=== PATIENT | male | born 1950 | race Caucasian/White ===

== ENCOUNTER 2017-11-09 07:33 | Day surgery (SDC) | payer MEDICARE, OTHER ==
[~2017-11-09 07:33] MED LIST: LIDOCAINE 2% INJ 100 MG/5 ML SDV (FOR ANES.) As Ordered; PROPOFOL 200 MG/20 ML VIAL As Ordered
[2017-11-09] MEDS: NS 1,000 ML IV (07:45)
[2017-11-09] MEDS ORDERED: PROPOFOL 200 MG/20 ML VIAL As Ordered (10:06)
== END 2017-11-09 10:54 | disposition home or self-care (01) ==
LOC: M OPP 07:33
DX: Z12.11 Encounter for screening for malignant neoplasm of colon (principal); Z86.010 Personal history of colon polyps; K57.30 Diverticulosis of large intestine without perforation or abscess without bleeding; R00.8 Other abnormalities of heart beat; K25.9 Gastric ulcer, unspecified as acute or chronic, without hemorrhage or perforation; Z87.19 Personal history of other diseases of the digestive system; Z86.69 Personal history of other diseases of the nervous system and sense organs; K21.9 Gastro-esophageal reflux disease without esophagitis; K59.00 Constipation, unspecified; M19.90 Unspecified osteoarthritis, unspecified site; F41.9 Anxiety disorder, unspecified; L98.8 Other specified disorders of the skin and subcutaneous tissue; R51 Headache; G25.81 Restless legs syndrome; G47.30 Sleep apnea, unspecified; R06.83 Snoring; N40.1 Benign prostatic hyperplasia with lower urinary tract symptoms; Z96.643 Presence of artificial hip joint, bilateral; Z88.8 Allergy status to other drugs, medicaments and biological substances; Z79.82 Long term (current) use of aspirin; Z79.899 Other long term (current) drug therapy; Z87.891 Personal history of nicotine dependence; Z80.9 Family history of malignant neoplasm, unspecified
CPT/HCPCS: G0105

== ENCOUNTER → 2018-11-08 | Outpatient (REF) | payer MEDICARE, OTHER ==
[~2018-11-08] MED LIST changes: +ACET500C OR; +AMBI10TA OR; +AMIT25TA2 OR; +AMOX500C OR; +ASPI81TA52; +ASPI81TA83 OR; +CETI10TA; +CLAR500T OR; +COLA100C2 OR; +COUM1TAB18 OR; +ESZO1TAB4; +FISH1000; +FISH300C2 OR; +FLEXERIL PO; +FLOM0.4C39; +FLUTISP; +GLUC500T3 OR; -LIDOCAINE 2% INJ 100 MG/5 ML SDV (FOR ANES.) As Ordered; +LORA-243; +LUNE3TAB36; +LUTE20CA PO; +MELOX; +MULTIVIT PO; +NEUR100C OR; +NORT10CA2; +PERC5TAB8 OR; +PERC7.5T8 OR; -PROPOFOL 200 MG/20 ML VIAL As Ordered; +PROT1TAB2 OR; +REFR0.5D8 OU; +SIMV40TA2 OR; +SUCR1TAB56 OR; +TRAM50TA2 OR; +TYLENOL #3 OR; +VITA100067 PO; +VITA400C OR; +VITA500T OR; +VITAMIN PO; +meloxicam PO
[2018-11-08 15:48] LABS: BASO # 0.1 10^3/uL (0.0-0.2); EOS # 0.2 10^3/uL (0.0-0.50); EOS % 3.8 % (0.0-3.0); HEMATOCRIT 46.4 % (42.0-52.0); HEMOGLOBIN 15.8 g/dl (13.5-17.5); LYMPH # 1.7 10^3/uL (1.5-4.5); LYMPH % 28.4 % (24.0-44.0); MEAN CORPUSCULAR HEMOGLOBIN 30.9 pg (27.0-33.0); MEAN CORPUSCULAR HGB CONC 34.1 g/dl (32.0-36.5); MEAN CORPUSCULAR VOLUME 90.6 fl (80.0-96.0); MONO % 16.5 % (0.0-5.0); NEUTROPHILS # 3.1 10^3/uL (1.8-7.7); NEUTROPHILS % 50.1 % (36.0-66.0); PLATELET COUNT, AUTOMATED 296 10^3/uL (150-450); RED BLOOD COUNT 5.12 10^6/uL (4.30-6.10); WHITE BLOOD COUNT 6.1 10^3/uL (4.0-10.0)
[2018-11-08 17:36] LABS: ERYTHROCYTE SEDIMENTATION RATE 11 mm/hr (0-20)
== END ==
LOC: M LABDRAW1 12:06
PROVIDERS: ATTEND Physician Assistant
DX: M70.22 Olecranon bursitis, left elbow (principal); Z79.899 Other long term (current) drug therapy

== ENCOUNTER 2018-11-22 12:43 | Day surgery (SDC) | payer MEDICARE, OTHER ==
[~2018-11-22] VITALS: Ht 180.3 cm; Wt 94.3 kg
[~2018-11-22 12:43] MED LIST changes: +ACET300T47 PO; +ASPI1TAB PO; +AZEL0.1S; -CETI10TA; +CETI10TA PO; +CYCL10TA PO; -FISH1000; +FISH1000 PO; +LIDO1PAD TOP; +LIDOCAINE 1% MDV 20ML VIAL SQ PRN; +LR 1,000 ML IV ONE; +MELA3TAB PO; +MULTTAB4 PO; -NORT10CA2; +NORT10CA2 PO; +PANT40TA3 PO; +SIMV40TA2 PO; +VITA-122 PO; +VITA-157 PO; +VITA500T9 PO; +[UNRECOGNIZED DRUG - CODE] PO
[2018-11-22] MEDS ORDERED: fentaNYL 250 MCG/5 ML INJECTION (J3010) As Ordered ONE (14:31)
[2018-11-22] MEDS ORDERED: dexameTHASONE 4 MG/ML 1ML VIAL (J1100) As Ordered ONE (14:31)
[2018-11-22] MEDS ORDERED: MIDAZOLAM INJ 2 MG/2 ML VIAL (J2250) As Ordered ONE (14:31)
[2018-11-22] MEDS ORDERED: LIDOCAINE 2% INJ 100 MG/5 ML SDV (FOR ANES.) As Ordered ONE (14:31)
[2018-11-22] MEDS ORDERED: PROPOFOL 200 MG/20 ML VIAL As Ordered ONE (14:31)
[2018-11-22] MEDS ORDERED: ROCURONIUM BROMIDE 50 MG/5 ML VIAL As Ordered ONE (14:31)
[2018-11-22] MEDS ORDERED: ONDANSETRON 4MG/2ML VIAL (J2405) As Ordered ONE (15:28)
[2018-11-22] MEDS ORDERED: ACETAMINOPHEN 1000MG 100ML IV BTL (OFIRMEV) (J0131 PER 10MG) As Ordered ONE (15:28)
[2018-11-22] MEDS ORDERED: BUPIVACAINE HCL 0.5% 30 ML VIAL As Ordered ONE (16:37)
[2018-11-22] MEDS ORDERED: SUGAMMADEX SODIUM 500 MG/5 ML VIAL (BRIDION) As Ordered ONE (16:59)
[2018-11-22] MEDS ORDERED: oxyCODONE 5MG TAB As Ordered ONE (17:39)
[2018-11-22] MEDS ORDERED: HYDROMORPHONE HCL 0.5 MG/ 0.5 ML SYRINGE (J1170 PER 1) As Ordered ONE (17:39)
[2018-11-22] MEDS ORDERED: LR 1,000 ML IV SCH ×2 (17:45)
[2018-11-22] MEDS ORDERED: oxyCODONE 5MG TAB PO PRN (17:45)
[2018-11-22] MEDS ORDERED: fentaNYL 100 MCG/2 ML INJECTION (J3010) IV PRN (17:45)
[2018-11-22] MEDS: HYDROMORPHONE HCL 0.5 MG/ 0.5 ML SYRINGE (J1170 PER 1) IV PRN ×3 (17:45→18:28)
[2018-11-22 20:15] VITALS: BP 126/71
--- NOTE | 2018-11-22 20:33 | RO ---
DATE OF PROCEDURE: 11/22/2018 PREOPERATIVE DIAGNOSIS: Left distal triceps tendon rupture. POSTOPERATIVE DIAGNOSIS: Left distal triceps tendon rupture. PROCEDURE: Left distal triceps tendon repair. SURGEON: Dr. Ceasar Kiran PRESS TENDER: JESS Pantoja ANESTHESIA: General. IV FLUIDS: Lactated Ringer's. ESTIMATED BLOOD LOSS: 5 mL IMPLANTS: 4.75 mm Peak SwiveLock anchor times one. Closure with nylon. DESCRIPTION OF PROCEDURE: Patient identified in preoperative holding area. The left arm marked by myself. He was brought to the operating room, placed supine on a well-padded OR table with a beanbag. After induction of general anesthesia, he received appropriate IV antibiotics. He was then placed into the right side down lateral decubitus position with an axillary roll and all bony prominences were well padded. Bilateral Venodyne boots for DVT prophylaxis. The left arm was draped over an arm cota. The entire left upper extremity from the hand to the 10:10 drapes was then sterilely prepped with Chloraprep. This was draped in the normal sterile fashion. Prior to incision, a time-out was performed per hospital protocol. Jose Luis Alexandre was present for the entire procedure and participated in all essential portions of the procedure. This included patient positioning and draping, holding retractors, assisting with the whip stitching of the tendon, tensioning sutures, passing sutures and assisting with anchor placement and wound closure. This case would not have been possible without a skilled either attending physician or a PA as the tendon injury was already a month old. The left upper extremity was exsanguinated with an Esmarch bandage and a sterile tourniquet was applied and inflated to 250 mmHg. A curvilinear incision was made with a #15 blade over the distal humerus curving laterally around the olecranon. Subcutaneous dissection with Metzenbaum scissors. A seroma was encountered and drained. Bursal tissue was released laterally. The distal triceps tendon was then visualized having retracted greater than 4 cm. There was a large bony fragment larger than appeared on the x-ray. Allis clamp was placed. With significant distal traction I was able to reduce it with the arm in full extension. The bony fragment was sharply excised with a fresh #15 blade. First a FiberWire was placed then a running locking whip stitch crack out fashion along the lateral portion of the tendon. Next these steps were repeated medially with great care to protect the ulnar nerve. This led to four separate strands of FiberWire. I should mention that the sutures entered the tendon about 2 cm proximal to the tip of the tendon. The olecranon was then prepared. A #15 blade and rongeur were used to remove soft tissue off of the olecranon to create a bony bleeding surface. I then created two drill holes with a 2-mm drill bit from the far proximal extent of the olecranon at the deep insertion, then exiting out the subcutaneous border of the ulna distally. One was medial and one was lateral. I then placed FiberLink sutures medially and laterally through the tendon. Next, the lateral sutures were retrieved through the lateral drill hole using a XAware suture passer and the medial sutures retrieved with the XAware suture passer through the medial drill hole. FiberLinks were then used to shuttle one medial and one lateral FiberWire out each drill hole to create a box and X configuration. The incision was extensively irrigated. The arm was then brought into full extension and the sutures were toggled which docked the tendon along the posterior aspect olecranon at the anatomic footprint. I was able to get some of the tendon to advance up over the lip of the olecranon. The elbow was flexed to 40 degrees without lift off. Next, I used a 4.5 mm drill bit to create a unicortical socket in the central aspect of the ulna just distal to those bone tunnels. This was angled distally to avoid the joint. I used the appropriate tap and then re-irrigated. The FiberWire sutures were loaded in a crossing fashion through the SwiveLock anchor and the sutures were retoggled to create as much compression as possible at the anatomic footprint and then the anchor was malleted and inserted by hand with excellent fixation. Excess suture trimmed and discarded. Elbow was again flexed to 40 degrees without any lift off. The elbow was re-irrigated. Lateral aspect of the triceps tear was reinforced with #2 FiberWire in [id number] fashion. Deep closure with #2-0 Vicryl followed by #2-0 subcuticular closure and a running #3-0 nylon. I injected 20 mL of 0.5% Marcaine without epinephrine at the end of the case. I should have mentioned that I did let the tourniquet down prior to placing the SwiveLock anchor to gain as much distal excursion on the triceps tendon. At the time wound closure, there was excellent hemostasis. The patient was placed into a sterile dressing and then placed into a well-padded long arm splint with primarily a large posterior piece and then a smaller anterior strut to reinforce the elbow and this placed the elbow in about 20 degrees of flexion. 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 Sensation to light touch median, radial, ulnar nerves was intact. The hand was warm and well-perfused. COMPLICATIONS: None. DISPOSITION: The patient will remain in his splint until followup visit in 2 weeks. Will transition him to a hinged elbow brace and will get right into physical therapy.
== END 2018-11-22 13:45 | disposition home or self-care (01) ==
LOC: M SDC 12:43
PROVIDERS: ATTEND Orthopaedic Surgery
DX: S46.312A Strain of muscle, fascia and tendon of triceps, left arm, initial encounter (principal); K21.9 Gastro-esophageal reflux disease without esophagitis; G47.30 Sleep apnea, unspecified; F41.9 Anxiety disorder, unspecified; Z88.8 Allergy status to other drugs, medicaments and biological substances; Z79.82 Long term (current) use of aspirin; N40.0 Benign prostatic hyperplasia without lower urinary tract symptoms; Z79.899 Other long term (current) drug therapy; Y92.9 Unspecified place or not applicable; Y93.9 Activity, unspecified
CPT/HCPCS: 24341; C1713; J0131; J1100; J1170; J2250; J2405; J3010

== ENCOUNTER → 2019-02-13 | Outpatient (REF) | payer MEDICARE, OTHER ==
[~2019-02-13] MED LIST changes: +ASPI-523 PO; -ASPI1TAB PO; -LIDOCAINE 1% MDV 20ML VIAL SQ PRN; -LR 1,000 ML IV ONE; -MELA3TAB PO; +MELA3TAB63 PO; +[UNRECOGNIZED DRUG - CODE] PO; -[UNRECOGNIZED DRUG - CODE] PO
[2019-02-13 20:14] LABS: C REACTIVE PROTEIN QUANTITATIV 0.49 MG/DL (0.00-0.30); RHEUMATOID FACTOR QUANT < 10.0 IU/ML (<15.0)
== END ==
LOC: M LABDRAW1 19:33
PROVIDERS: ATTEND Physician Assistant
DX: M54.5 Low back pain (principal)

== ENCOUNTER → 2020-09-29 | Outpatient (CLI) | payer SELFPAY ==
[~2020-09-29] MED LIST changes: +CYCL-707 PO; -CYCL10TA PO; +GLUC500C55 PO; -MELA3TAB63 PO; +MELA3TAB70 PO; +MULT1TAB74 PO; -MULTTAB4 PO; +PANT40TA29 PO; -PANT40TA3 PO; -SIMV40TA2 PO; +SIMV40TA20 PO; -VITA-157 PO; +VITAE40CA PO; -[UNRECOGNIZED DRUG - CODE] PO
== END ==
LOC: M LABSMTC 09:33
PROVIDERS: ATTEND Pediatrics
DX: Z11.52 Encounter for screening for COVID-19 (principal)

== ENCOUNTER → 2022-02-17 | Outpatient (CLI) | payer OTHER ==
[~2022-02-17] MED LIST changes: -GLUC500C55 PO; +GLUC500C65 PO
== END ==
LOC: M RAD 06:50
PROVIDERS: ATTEND Internal Medicine
DX: R10.9 Unspecified abdominal pain (principal); E11.9 Type 2 diabetes mellitus without complications

== ENCOUNTER → 2022-06-14 | Outpatient (REF) | payer OTHER ==
[2022-06-14 19:37] LABS: APPEARANCE, URINE MANUAL CLEAR (CLEAR); COLOR, URINE MANUAL YELLOW (YELLOW); PH,URINE MAN 5.5 UNITS (5.0 - 7.0); SPECIFIC GRAVITY,URINE MANUAL 1.015 (1.002-1.035)
[2022-06-14 19:38] LABS: BILIRUBIN, URINE MANUAL NEGATIVE (NEGATIVE); BLOOD URINE MANUAL TRACE (NEGATIVE); GLUCOSE, URINE (UA) MANUAL NEGATIVE (NEGATIVE); KETONE, URINE MANUAL NEGATIVE (NEGATIVE); LEUKOCYTE ESTERASE, URINE MAN POSITIVE (NEGATIVE); NITRITE, URINE MANUAL NEGATIVE (NEGATIVE); PROTEIN, URINE MANUAL NEGATIVE (NEGATIVE); UROBILINOGEN, URINE MANUAL NORMAL (NORMAL)
[2022-06-14 20:17] LABS: WBC, URINE TNTC /hpf (0-3)
[2022-06-14 20:18] LABS: BACTERIA, URINE MOD AMOUNT; SQUAMOUS EPITHELIAL CELL URINE MOD AMOUNT /hpf (SMALL AMT)
[2022-06-14 20:20] LABS: HYALINE CAST, URINE NONE SEEN /lpf (0-1)
== END ==
LOC: M SMT 16:50
PROVIDERS: ATTEND Urology
DX: N39.0 Urinary tract infection, site not specified (principal)

== ENCOUNTER → 2023-01-06 | Outpatient (CLI) | payer MEDICARE, OTHER ==
[~2023-01-06] MED LIST changes: +FLUT50SP17; -FLUTISP
[2023-01-06 16:16] LABS: BLOOD UREA NITROGEN 15 MG/DL (9-23); CALCIUM LEVEL 8.9 MG/DL (8.3-10.6); CARBON DIOXIDE LEVEL 27 MMOL/L (20-31); CHLORIDE LEVEL 105 MMOL/L (98-107); CREATININE FOR GFR 1.14 MG/DL (0.70-1.30); GLOMERULAR FILTRATION RATE > 60.0 (>42); GLUCOSE, FASTING 98 MG/DL (74-106); POTASSIUM SERUM 4.3 MMOL/L (3.5-5.1); SODIUM LEVEL 138 MMOL/L (136-145)
== END ==
LOC: M LAB 15:15
PROVIDERS: ATTEND Internal Medicine
DX: Z79.899 Other long term (current) drug therapy (principal)

== ENCOUNTER → 2023-01-06 | Outpatient (CLI) | payer MEDICARE, OTHER ==
[~2023-01-06] MED LIST changes: +GASTROGRAFIN SOLUTION 30ML As Ordered ONE; +ISOVUE-370 76% 100ML VIAL As Ordered ONE
== END ==
LOC: M RAD 13:48
PROVIDERS: ATTEND Internal Medicine Gastroenterology
DX: R22.2 Localized swelling, mass and lump, trunk (principal); Z79.899 Other long term (current) drug therapy
CPT/HCPCS: 36415; 74178; 80048; Q9963; Q9967

== ENCOUNTER → 2023-03-18 | Outpatient (CLI) | payer OTHER, MEDICARE ==
[~2023-03-18] MED LIST changes: -GASTROGRAFIN SOLUTION 30ML As Ordered ONE; -ISOVUE-370 76% 100ML VIAL As Ordered ONE; -LUNE3TAB36; +LUNE3TAB50; +PROHANCE 279.3MG/ML 15ML VIAL As Ordered ONE; +PROHANCE 279.3MG/ML 5ML VIAL As Ordered ONE
== END ==
LOC: M RAD 08:34
PROVIDERS: ATTEND Surgery
DX: D48.7 Neoplasm of uncertain behavior of other specified sites (principal)
CPT/HCPCS: 74183; A9576

== ENCOUNTER → 2023-06-02 | Outpatient (REF) | payer MEDICARE, OTHER ==
[~2023-06-02] MED LIST changes: +ASPI-226 PO; +BARLEY PO; +CETI-24 PO; +COLA100C5 PO; +DOCU100C16 PO; -FLUT50SP17; +FLUTISP; +LUTE2000 PO; +METF-838 PO; +MULT-90 PO; +OMEG10002 PO; -PROHANCE 279.3MG/ML 15ML VIAL As Ordered ONE; -PROHANCE 279.3MG/ML 5ML VIAL As Ordered ONE; +RA M1000 PO; +REFR0.5D8 OP; +SIMV10TA21 PO; +TAMS1CAP17 PO; +TIZA10TA PO; +VIBE75TA PO; +VITA100093 PO
== END ==
LOC: M LAB REF 14:47
PROVIDERS: ATTEND Surgery
DX: C7A.8 Other malignant neuroendocrine tumors (principal)

== ENCOUNTER 2023-06-15 06:16 | Day surgery (SDC) | payer OTHER, MEDICARE ==
[~2023-06-15] VITALS: Ht 180.3 cm; Wt 98.3 kg
[~2023-06-15 06:16] MED LIST changes: +HYAL60CA PO; +NS 1,000 ML IV ONE; +RA T500C2 PO
[2023-06-15] MEDS ORDERED: propofoL 200 MG/20 ML VIAL As Ordered ONE ×2 (07:12→07:46)
[2023-06-15] MEDS ORDERED: fentaNYL 100 MCG/2 ML INJECTION As Ordered ONE (07:12)
[2023-06-15 08:06] VITALS: TEMP 97.4
[2023-06-15 08:34] VITALS: BP 117/64; O2SAT 96
== END 2023-06-15 08:54 | disposition home or self-care (01) ==
LOC: M OPP 06:16
PROVIDERS: ATTEND Internal Medicine Gastroenterology
DX: Z12.11 Encounter for screening for malignant neoplasm of colon (principal); Z86.010 Personal history of colon polyps; K64.0 First degree hemorrhoids; K57.30 Diverticulosis of large intestine without perforation or abscess without bleeding; K22.89 Other specified disease of esophagus; R12 Heartburn; E11.9 Type 2 diabetes mellitus without complications; G47.30 Sleep apnea, unspecified; Z99.89 Dependence on other enabling machines and devices; Z87.891 Personal history of nicotine dependence; Z79.02 Long term (current) use of antithrombotics/antiplatelets; Z79.1 Long term (current) use of non-steroidal anti-inflammatories (NSAID); Z79.52 Long term (current) use of systemic steroids; Z79.82 Long term (current) use of aspirin; Z79.84 Long term (current) use of oral hypoglycemic drugs; Z79.899 Other long term (current) drug therapy; Z88.6 Allergy status to analgesic agent; Z88.8 Allergy status to other drugs, medicaments and biological substances
CPT/HCPCS: 43239; 45378; 88305; J3010

== ENCOUNTER 2023-06-16 10:37 | Day surgery (SDC) | payer MEDICARE, OTHER ==
[~2023-06-16] VITALS: Ht 180.3 cm; Wt 95.3 kg
[~2023-06-16 10:37] MED LIST changes: +BSS IRRIG/VANCO(10MG)/TOBRA(5MG)/EPINEPH(1:1000-0.5CC)500ML BAG-ORONLY IR ONE; +CEFUROXIME 1MG/0.1ML INTRACAMERAL INJ As Ordered ONE; +CYCLOPENTOLATE 1% OPHTH SOLN 2ML BTL OD SCH; +LIDOCAINE 1% SDV 5ML VIAL As Ordered ONE; +LIDOCAINE 3.5 % 1ML OPHTH TOPICAL GEL OU ONE; -NS 1,000 ML IV ONE; +OFLOXACIN 0.3 % (OCUFLOX) OPTH SOL 5ML OD ONE; +PHENYLEPHRINE 10% OPHTH SOL 5ML OD PRN; +PHENYLEPHRINE 2.5% OPHTH SOL 2ML OD SCH; +TROPICAMIDE 1% OPHTH SOLN 15ML OD SCH
[2023-06-16] MEDS ORDERED: fentaNYL 100 MCG/2 ML INJECTION As Ordered ONE (10:44)
[2023-06-16] MEDS ORDERED: MIDAZOLAM INJ 2MG/2ML VIAL As Ordered ONE (10:44)
[2023-06-16 12:03] VITALS: BP 112/56; TEMP 97.1; O2SAT 96
== END 2023-06-16 12:33 | disposition home or self-care (01) ==
LOC: M SDC 10:37
PROVIDERS: ATTEND Ophthalmology
DX: H25.11 Age-related nuclear cataract, right eye (principal); R73.03 Prediabetes; E78.00 Pure hypercholesterolemia, unspecified; I49.1 Atrial premature depolarization; I67.1 Cerebral aneurysm, nonruptured; Z79.899 Other long term (current) drug therapy; R03.0 Elevated blood-pressure reading, without diagnosis of hypertension; Z79.82 Long term (current) use of aspirin; G47.30 Sleep apnea, unspecified; Z88.8 Allergy status to other drugs, medicaments and biological substances; Z88.6 Allergy status to analgesic agent; Z87.891 Personal history of nicotine dependence
CPT/HCPCS: 66984; J0697; J2250; J3010; V2632

== ENCOUNTER → 2023-07-04 | Outpatient (CLI) | payer MEDICARE ==
[~2023-07-04] MED LIST changes: -BSS IRRIG/VANCO(10MG)/TOBRA(5MG)/EPINEPH(1:1000-0.5CC)500ML BAG-ORONLY IR ONE; -CEFUROXIME 1MG/0.1ML INTRACAMERAL INJ As Ordered ONE; -CYCLOPENTOLATE 1% OPHTH SOLN 2ML BTL OD SCH; -LIDOCAINE 1% SDV 5ML VIAL As Ordered ONE; -LIDOCAINE 3.5 % 1ML OPHTH TOPICAL GEL OU ONE; -OFLOXACIN 0.3 % (OCUFLOX) OPTH SOL 5ML OD ONE; -PHENYLEPHRINE 10% OPHTH SOL 5ML OD PRN; -PHENYLEPHRINE 2.5% OPHTH SOL 2ML OD SCH; -TROPICAMIDE 1% OPHTH SOLN 15ML OD SCH
== END ==
LOC: M CARPUL 08:09
PROVIDERS: ATTEND Surgery
DX: R06.02 Shortness of breath (principal)

== ENCOUNTER 2023-07-21 10:00 | Day surgery (SDC) | payer MEDICARE, OTHER ==
[~2023-07-21] VITALS: Ht 180.3 cm; Wt 98.4 kg
[~2023-07-21 10:00] MED LIST changes: +HYDR-3363 PO; +MIDAZOLAM INJ 2MG/2ML VIAL As Ordered ONE; +PHENYLEPHRINE 10% OPHTH SOL 5ML OS PRN; +fentaNYL 100 MCG/2 ML INJECTION As Ordered ONE
[2023-07-21] MEDS: OFLOXACIN 0.3 % (OCUFLOX) OPTH SOL 5ML OS ONE (10:43)
[2023-07-21] MEDS: ATROPINE SULFATE 1% OPHTH SOLN 2ML BTL OS SCH (10:44)
[2023-07-21] MEDS: TROPICAMIDE 1% OPHTH SOLN 15ML OS SCH (10:44)
[2023-07-21] MEDS: PHENYLEPHRINE 2.5% OPHTH SOL 2ML OS SCH (10:44)
[2023-07-21] MEDS: LIDOCAINE 3.5 % 1ML OPHTH TOPICAL GEL OU ONE (10:44)
[2023-07-21] MEDS: LIDOCAINE 1% SDV 5ML VIAL As Ordered ONE (11:34)
[2023-07-21] MEDS: CEFUROXIME 1MG/0.1ML INTRACAMERAL INJ As Ordered ONE (11:35)
[2023-07-21] MEDS: BSS IRRIG/VANCO(10MG)/TOBRA(5MG)/EPINEPH(1:1000-0.5CC)500ML BAG-ORONLY As Ordered ONE (11:35)
[2023-07-21 11:49] VITALS: BP 136/73; TEMP 96.5; O2SAT 96
== END 2023-07-21 12:14 | disposition home or self-care (01) ==
LOC: M SDC 10:00
PROVIDERS: ATTEND Ophthalmology
DX: H25.12 Age-related nuclear cataract, left eye (principal); I10 Essential (primary) hypertension; R73.03 Prediabetes; G47.30 Sleep apnea, unspecified; Z79.899 Other long term (current) drug therapy; Z79.82 Long term (current) use of aspirin; Z86.73 Personal history of transient ischemic attack (TIA), and cerebral infarction without residual deficits; Z96.643 Presence of artificial hip joint, bilateral; Z88.8 Allergy status to other drugs, medicaments and biological substances; Z88.6 Allergy status to analgesic agent
CPT/HCPCS: 66984; J0697; J2250; J3010; V2632

== ENCOUNTER → 2023-08-02 | Outpatient (CLI) | payer OTHER, MEDICARE ==
[~2023-08-02] MED LIST changes: -MIDAZOLAM INJ 2MG/2ML VIAL As Ordered ONE; -PHENYLEPHRINE 10% OPHTH SOL 5ML OS PRN; -fentaNYL 100 MCG/2 ML INJECTION As Ordered ONE
== END ==
LOC: M EKG 13:13
PROVIDERS: ATTEND Internal Medicine Cardiovascular Disease
DX: I49.3 Ventricular premature depolarization (principal)

== ENCOUNTER → 2023-09-30 | Outpatient (REF) | payer OTHER ==
[2023-09-30 14:00] LABS: APPEARANCE, URINE HAZY (CLEAR); BACTERIA, URINE AUTO 1+ (NEGATIVE); BILIRUBIN, URINE AUTO NEGATIVE (NEGATIVE); BLOOD, URINE BLOOD NEGATIVE (NEGATIVE); COLOR, URINE YELLOW (YELLOW); GLUCOSE, URINE (UA) AUTO NEGATIVE (NEGATIVE); KETONE, URINE AUTO NEGATIVE (NEGATIVE); LEUKOCYTE ESTERASE, URINE AUTO 2+ (NEGATIVE); NITRITE, URINE AUTO NEGATIVE (NEGATIVE); PROTEIN, URINE AUTO NEGATIVE (NEGATIVE); RBC, URINE AUTO 3 /HPF (0-3); SPECIFIC GRAVITY URINE AUTO 1.018 (1.002-1.035); SQUAMOUS EPITHELIAL CELL UR AU 2 /HPF (0-6); UROBILINOGEN, URINE AUTO 0.2 mg/dL (0.0-2.0); WBC, URINE AUTO 84 /HPF (0-3)
== END ==
LOC: M LABSMT 10:44
PROVIDERS: ATTEND Urology
DX: N39.41 Urge incontinence (principal)

== ENCOUNTER 2024-05-22 16:00 | Emergency (ER) | payer MEDICARE, OTHER ==
[~2024-05-22] VITALS: Ht 180.3 cm; Wt 93.3 kg
[~2024-05-22 16:00] MED LIST changes: -AZEL0.1S; +AZEL137S8; +SOLI10TA
[2024-05-22 20:45] VITALS: BP 122/59; TEMP 97.9; O2SAT 100
== END 2024-05-22 20:45 | disposition home or self-care (01) ==
LOC: M ED 16:00
DX: T16.2XXA Foreign body in left ear, initial encounter (principal); E78.5 Hyperlipidemia, unspecified; N40.0 Benign prostatic hyperplasia without lower urinary tract symptoms; F10.10 Alcohol abuse, uncomplicated; Z88.8 Allergy status to other drugs, medicaments and biological substances; Z79.1 Long term (current) use of non-steroidal anti-inflammatories (NSAID); Z79.810 Long term (current) use of selective estrogen receptor modulators (SERMs); Z79.899 Other long term (current) drug therapy

== ENCOUNTER → 2024-12-14 | Outpatient (REF) | payer MEDICARE, OTHER ==
[~2024-12-14] MED LIST changes: -FLOM0.4C39; -RA T500C2 PO; +TAMS-18; +TURM500C10 PO
[2024-12-14 19:09] LABS: APPEARANCE, URINE CLEAR (CLEAR); BACTERIA, URINE AUTO NEGATIVE (NEGATIVE); BILIRUBIN, URINE AUTO NEGATIVE (NEGATIVE); BLOOD, URINE BLOOD NEGATIVE (NEGATIVE); GLUCOSE, URINE (UA) AUTO 3+ mg/dL (NEGATIVE); KETONE, URINE AUTO NEGATIVE (NEGATIVE); LEUKOCYTE ESTERASE, URINE AUTO NEGATIVE (NEGATIVE); NITRITE, URINE AUTO NEGATIVE (NEGATIVE); PROTEIN, URINE AUTO NEGATIVE (NEGATIVE); RBC, URINE AUTO 0 /HPF (0-3); SPECIFIC GRAVITY URINE AUTO 1.017 (1.002-1.035); SQUAMOUS EPITHELIAL CELL UR AU 0 /HPF (0-6); UROBILINOGEN, URINE AUTO 0.2 mg/dL (0.0-2.0); WBC, URINE AUTO 0 /HPF (0-3)
== END ==
LOC: M SMT 16:42
PROVIDERS: ATTEND Physician Assistant
DX: R30.0 Dysuria (principal)

== ENCOUNTER → 2024-12-20 | Outpatient (CLI) | payer MEDICARE, OTHER ==
[2024-12-20 17:38] LABS: PLATELET COUNT, AUTOMATED 227 10^3/uL (150-450)
[2024-12-20 17:48] LABS: INR 0.99
[2024-12-20 17:55] LABS: ALT/SGPT 29.0 U/L (7.0-40); AST/SGOT 28.0 U/L (<34); CALCIUM LEVEL 9.1 MG/DL (8.3-10.6); CARBON DIOXIDE LEVEL 28.0 MMOL/L (20-31); CHLORIDE LEVEL 102.0 MMOL/L (98-107); CREATININE FOR GFR 1.15 MG/DL (0.70-1.30); GLOMERULAR FILTRATION RATE 67.2 (>42); POTASSIUM SERUM 4.8 MMOL/L (3.5-5.1); SODIUM LEVEL 140.0 MMOL/L (136-145)
== END ==
LOC: M LAB 17:00
PROVIDERS: ATTEND Nurse Practitioner
DX: I65.21 Occlusion and stenosis of right carotid artery (principal); I67.1 Cerebral aneurysm, nonruptured; Q28.3 Other malformations of cerebral vessels; K66.8 Other specified disorders of peritoneum

== ENCOUNTER → 2024-12-27 | Outpatient (CLI) | payer MEDICARE, OTHER ==
[~2024-12-27] MED LIST changes: +ISOVUE-370 76% 100 ML VIAL As Ordered ONE
== END ==
LOC: M RAD 06:34
PROVIDERS: ATTEND Nurse Practitioner
DX: I67.1 Cerebral aneurysm, nonruptured (principal); K66.8 Other specified disorders of peritoneum; I70.0 Atherosclerosis of aorta; N62 Hypertrophy of breast
CPT/HCPCS: 75635; Q9967

== ENCOUNTER → 2025-01-31 | Outpatient (CLI) | payer MEDICARE, OTHER ==
[~2025-01-31] MED LIST changes: -ISOVUE-370 76% 100 ML VIAL As Ordered ONE
== END ==
LOC: M RAD 14:50
PROVIDERS: ATTEND Physician Assistant
DX: N43.3 Hydrocele, unspecified (principal); N50.82 Scrotal pain

== ENCOUNTER → 2025-04-04 | Outpatient (REF) | payer MEDICARE, OTHER | LOC: M LAB REF 12:36 | PROVIDERS: ATTEND Internal Medicine | DX: D48.4 Neoplasm of uncertain behavior of peritoneum (principal); I73.9 Peripheral vascular disease, unspecified; M15.9 Polyosteoarthritis, unspecified ==

== ENCOUNTER → 2025-05-03 | Outpatient (REF) | payer OTHER ==
[2025-05-03 17:41] LABS: APPEARANCE, URINE HAZY (CLEAR); BACTERIA, URINE AUTO NEGATIVE (NEGATIVE); BILIRUBIN, URINE AUTO NEGATIVE (NEGATIVE); BLOOD, URINE BLOOD NEGATIVE (NEGATIVE); GLUCOSE, URINE (UA) AUTO 3+ mg/dL (NEGATIVE); KETONE, URINE AUTO NEGATIVE (NEGATIVE); LEUKOCYTE ESTERASE, URINE AUTO NEGATIVE (NEGATIVE); NITRITE, URINE AUTO NEGATIVE (NEGATIVE); PROTEIN, URINE AUTO NEGATIVE (NEGATIVE); RBC, URINE AUTO 2 /HPF (0-3); SPECIFIC GRAVITY URINE AUTO 1.022 (1.002-1.035); SQUAMOUS EPITHELIAL CELL UR AU 0 /HPF (0-6); UROBILINOGEN, URINE AUTO 0.2 mg/dL (0.0-2.0); WBC, URINE AUTO 2 /HPF (0-3)
== END ==
LOC: M SMT 17:06
PROVIDERS: ATTEND Physician Assistant
DX: N50.82 Scrotal pain (principal)